=== PATIENT | female | born 1965 | race Caucasian/White ===

== ENCOUNTER → 2016-10-27 | Outpatient (CLI) | payer MEDICARE, OTHER ==
[~2016-10-27] MED LIST: REGADENOSON 0.4 MG/5 ML SYRINGE IV ONE
--- NOTE | 2016-10-27 11:30 | NM ---
EXAMINATION TYPE: NM stress Lexiscan cardiolite DATE OF EXAM: 10/27/2016 COMPARISON: NONE HISTORY: Atypical chest pain TECHNIQUE: After the intravenous administration of 10.3 mCi Tc 99m Sestamibi - Cardiolite resting SP ECT images acquired 0850 minutes post injection. The patient received 0.4mg Lexiscan, 26.8 mCi Tc 99m Sestamibi - Stress images obtained 1008 minutes post injection FINDINGS: There is good uptake of radiopharmaceutical by the left ventricle. There is no fixed defect . Wall motion appears normal and ejection fraction is normal at 70%. IMPRESSION: I do not see convincing evidence of inducible ischemic change at this time.
--- NOTE | 2016-10-27 11:30 | EST ---
DATE OF SERVICE: 10/27/2016 AGE: 51Y SEX: F HT: 5'5" WT: 104 lbs. Protocol Romeo: Other: Lexiscan Cardiolite Stage: Dur. of Exercise: *Heart Rate Blood Pressure *Rest: 113 Rest: 107/65 * *Max. Achieved: 147 Maximum BP: 110/60 85% PMHR: 142 100% PMHR: 167 *METS: INDICATIONS OF THE STUDY: Chest pain. MEDICATIONS: Aspirin. STRESS DATA: Pretesting physical examination showed the heart rate of 113, pressure is 107/65 mmHg. Baseline EKG showed sinus rhythm. A 0.4 mg of Lexiscan was given to the patient over 15 seconds per protocol. Max heart rate was 147. Maximum blood pressure was 110/60 mmHg. Clinically, the patient did not have any symptoms of chest pain and the EKG did not show any significant ST or T wave abnormalities consistent with ischemia. CONCLUSION: 1. Nondiagnostic electrocardiogram stress testing in response to Lexiscan. 2. Please follow up on the Cardiolite portion on a separate report from the radiology department.
== END | disposition home or self-care (01) ==
LOC: RADNMMAIN 10-12 08:20
PROVIDERS: ATTEND Family Medicine
DX: R07.9 Chest pain, unspecified (principal)
CPT/HCPCS: 93017; 78452; A9500; J2785

== ENCOUNTER → 2017-01-07 | Outpatient (CLI) | payer MEDICARE, OTHER ==
--- NOTE | 2017-01-07 16:12 | US ---
EXAMINATION TYPE: US axilla extremity RT DATE OF EXAM: 01/07/2017 COMPARISON: NONE CLINICAL HISTORY: R22.2 LOCALIZED SWELLING. Right axilla edema Unable to identify any distinct abnormality within right axilla by ultrasound at this time . No suspi cious sonographic abnormality. No cystic or solid masses are seen. Normal vascularity is appreciated. No lymph nodes were identified. IMPRESSION: No sonographic correlate for the patient's localized right axillary edema.
--- NOTE | 2017-01-07 16:26 | CT ---
EXAMINATION TYPE: CT chest w con DATE OF EXAM: 01/07/2017 COMPARISON: NONE HISTORY: Shortness of breath x years. CT DLP: 108.40 mGycm. Automated Exposure Control for Dose Reduction was Utilized. TECHNIQUE: CT scan of the thorax is performed following with IV Contrast, patient injected with 100 mL of Omnipaque 300. FINDINGS: LUNGS: Centrilobular and paraseptal moderate emphysematous changes are appreciated with subpleural sa c lung cysts representing honeycombing in the lung apices. This is an appropriate referral distributi on with focal groundglass opacity in the lateral right lung apex on series 5 image 12. 2 spiculated p ulmonary nodules are seen within the peripheral right upper lobe, posterior segment measuring 6 mm an d within the right lower lobe superior segment measuring 5 mm both seen on series 5 image 21. Vague i ll-defined groundglass opacities are also scattered within the superior right upper lobe on series 5 image 23, image 25, and image 26. Partially visualized noncalcified 4 mm pulmonary nodule is seen adj acent to the interlobar fissure residing within the lower lobe on series 5 image 28. Right lower lobe reticular nodular subpleural densities are seen on series 5 image 38 and 39 anteriorly. No pulmonary mass is appreciated. There is no pleural effusion or pneumothorax seen. The tracheobron chial tree is patent. MEDIASTINUM: There are no greater than 1 cm hilar or mediastinal lymph nodes. No pericardial effusi on is seen. OTHER: Right axillary adenopathy is seen with the largest lymph node measuring 1.6 cm and a smaller p rominent lymph node measuring 9 mm in short axis. No evidence of left axillary adenopathy, mediastina l, or hilar adenopathy. Gallbladder surgically absent. IMPRESSION: 1. Moderate centrilobular and paraseptal emphysematous changes with a reverse gradient affect of inte rstitial lung disease with fibrosis of the lung apices. This finding can be seen in inhalation lung d isease, sarcoidosis, silicosis, eosinophilic granuloma, and tuberculosis. No other secondary supporti ng findings to suggest tuberculosis or sarcoidosis. 2. Multiple solid, some solid, and groundglass right-sided pulmonary nodules for which short-term fol low-up is recommended in 3 months to evaluate for resolution or progression as some of these may be i nflammatory in etiology. 3. Single enlarged right axillary lymph node containing an eccentric fatty hilum. Attention on follow -up recommended exam. Additionally mammography would be recommended if not recently performed at an [facility] [place] [facility].
== END ==
LOC: RADUSWWP 15:26
PROVIDERS: ATTEND Family Medicine
DX: R22.2 Localized swelling, mass and lump, trunk (principal); J43.9 Emphysema, unspecified; R91.8 Other nonspecific abnormal finding of lung field
CPT/HCPCS: 76882; 71260; Q9967

== ENCOUNTER → 2017-02-18 | Outpatient (CLI) | payer MEDICARE, OTHER ==
--- NOTE | 2017-02-18 11:07 | MM ---
Reason for exam: clinical finding. Last mammogram was performed 12 years and 6 months ago. History: Patient is postmenopausal. Family history of premenopausal breast cancer in sister. Indicated problem(s): lump or thickening in the right breast. Physical Findings: Nurse did not find any significant physical abnormalities on exam. MG 3D Diag Mammo W/Cad DIANA Bilateral CC and MLO view(s) were taken. Prior study comparison: August 12, 2004, bilateral screening mammogram. The breast tissue is heterogeneously dense. This may lower the sensitivity of mammography. Focal asymmetry anterior upper outer quadrant right breast becomes less defined on 3D. Ultrasound is recommended especially given a reported palpable finding detected by the physician. Otherwise, no discrete abnormality is seen. These results were verbally communicated with the patient and result sheet given to the patient on 02/18/17. ASSESSMENT: Incomplete: need additional imaging evaluation, BI-RAD 0 RECOMMENDATION: Ultrasound of the right breast. (upper outer quadrant)
--- NOTE | 2017-02-18 11:10 | USB ---
Reason for exam: additional evaluation requested from abnormal screening. History: Patient is postmenopausal. Family history of premenopausal breast cancer in sister. US Breast Limited RT Right breast ultrasound demonstrates a 8 x 8 x 2mm oval, solid, hypoechoic lesion at 9 o'clock. This likely corresponds to the mammographic finding. We also note that the physician palpated an area in the right breast. These results were verbally communicated with the patient and result sheet given to the patient on 02/18/17. ASSESSMENT: Suspicious, BI-RAD 4 RECOMMENDATION: Surgical consultation and ultrasound core biopsy of the right breast. Called with mammographic findings and has scheduled an appointment for the patient for 02/23/17 at 3:[address] Hobson. PRELIMINARY REPORT CALLED AND FAXED TO DR. HOBSON ON 02/19/17. [facility]
== END | disposition home or self-care (01) ==
LOC: RADMAMWWP 09:10
PROVIDERS: ATTEND Family Medicine
DX: N63 Unspecified lump in breast (principal)
CPT/HCPCS: 76642; G0204; G0279

== ENCOUNTER → 2018-08-15 | Outpatient (CLI) | payer MEDICARE, OTHER ==
--- NOTE | 2018-08-16 07:46 | XR ---
EXAMINATION TYPE: XR chest 2V DATE OF EXAM: 08/15/2018 COMPARISON: 11/07/2014 HISTORY: Cough with history of COPD TECHNIQUE: Frontal and lateral views of the chest are obtained. FINDINGS: Strand-like opacities are seen within the lung apices with pulmonary hyperinflation and ta pering of the pulmonary vasculature relating to underlying COPD. There is elongation of the cardiomed iastinal silhouette also fitting with underlying COPD. Hilar enlargement suggests underlying pulmonar y arterial hypertension. Lateral view displays increased retrosternal airspace and flattening of the diaphragms. No acute osseous abnormality. IMPRESSION: Reticular biapical opacities may represent developing fibrosis in this patient with unde rlying COPD or atypical pneumonia. No focal consolidation is seen. Findings suggest a component of pu lmonary arterial hypertension.
== END ==
LOC: RADXRMAIN 16:16
PROVIDERS: ATTEND Family Medicine
DX: R91.8 Other nonspecific abnormal finding of lung field (principal)
CPT/HCPCS: 71046